=== PATIENT | female | born 1965 | race Caucasian/White ===

== ENCOUNTER 2022-07-21 14:54 | Emergency (ER) | payer MEDICAID ==
[~2022-07-21] VITALS: Ht 152.4 cm; Wt 71.0 kg
[2022-07-21] MEDS ORDERED: HYDROmorphone HCL 2 MG/ML VL/or syr IM ONE (16:00)
[2022-07-21] MEDS ORDERED: ONDANSETRON HCL 4 MG/2 ML VIAL IM ONE (16:00)
[2022-07-21] MEDS ORDERED: ETOMIDATE (2MG/ML) 20ML VIAL IV ONE (16:15)
[2022-07-21] MEDS ORDERED: diphenhdrAMINE HCL 50 MG/1 ML VL ONE (16:45)
[2022-07-21] MEDS ORDERED: HYDR-4902 PO (16:59)
[2022-07-21] MEDS ORDERED: diphenhdrAMINE HCL 50 MG/1 ML VL IV ONE (17:00)
[2022-07-21] MEDS ORDERED: HYDROmorphone HCL 2 MG/ML VL/or syr IV ONE (17:15)
[2022-07-21 17:21] VITALS: BP 161/82
== END 2022-07-21 18:39 | disposition home or self-care (01) ==
LOC: ER 14:54
DX: S52.502A Unspecified fracture of the lower end of left radius, initial encounter for closed fracture (principal); S52.602A Unspecified fracture of lower end of left ulna, initial encounter for closed fracture; I10 Essential (primary) hypertension; Z90.49 Acquired absence of other specified parts of digestive tract; Z90.89 Acquired absence of other organs; Z98.51 Tubal ligation status; Z98.890 Other specified postprocedural states; W17.89XA Other fall from one level to another, initial encounter; Y93.89 Activity, other specified; Y92.89 Other specified places as the place of occurrence of the external cause; Y99.8 Other external cause status
CPT/HCPCS: 25605; 73100; 73110; 96372; 96374; 96375; 99285; J1170; J1200; J2405; 99291

== ENCOUNTER 2022-07-22 10:41 | Emergency (ER) | payer MEDICAID ==
[~2022-07-22] VITALS: Ht 152.4 cm; Wt 71.0 kg
[~2022-07-22 10:41] MED LIST: HYDR-4902 PO
[2022-07-22 13:39] VITALS: BP 126/83
[2022-07-22] MEDS ORDERED: MORPHINE SULFATE INJ 2 MG/ml SYRG IM ONE (14:00)
[2022-07-22] MEDS ORDERED: ONDANSETRON ODT 4 MG TAB PO ONE (14:00)
== END 2022-07-22 14:37 | disposition home or self-care (01) ==
LOC: ER 10:41
DX: Z00.00 Encounter for general adult medical examination without abnormal findings (principal); I10 Essential (primary) hypertension; Z90.49 Acquired absence of other specified parts of digestive tract; Z98.51 Tubal ligation status